=== PATIENT | male | born 1980 | race Hispanic/Latino ===

== ENCOUNTER 2023-04-21 15:56 | Emergency (ER) | payer SELFPAY ==
[~2023-04-21] VITALS: Ht 157.5 cm; Wt 90.0 kg
[2023-04-21] VITALS (8 sets, daily range): BP systolic 121–143; BP diastolic 79–95
[2023-04-21] MEDS ORDERED: TRANEXAMIC ACID 100 MG/ML 10ML TOP ONE (17:10)
[2023-04-21 17:21] LABS: BASO% 0.5 % (0-3); EOS% 1.7 % (0-8); HEMATOCRIT 33.4 % (39.0-50.0); HEMOGLOBIN 10.9 g/dl (14.0-18.0); IMMATURE GRANULOCYTES 0.2 % (0.0-5.0); LYMPH% 20.5 % (15-41); MEAN CELL VOLUME 84.3 fL CALC (80.0-100.0); MEAN CORPUSCULAR HGB 27.5 pG CALC (26.0-32.0); MEAN CORPUSCULAR HGB CONC 32.6 g/dL CAL (32.0-36.0); MONO% 7.5 % (2-13); NEUT# 4.06 thou/uL (1.82-7.42); NEUT% 69.6 % (42-76); RED BLOOD COUNT 3.96 mill/uL (4.70-6.10)
[2023-04-21 17:38] LABS: ALBUMIN 4.2 g/dL (3.2-5.0); ALKALINE PHOSPHATASE 94 u/l (38-126); ANION GAP 12 (6-22 (CALC)); BILIRUBIN, TOTAL 0.9 mg/dL (0.2-1.3); BUN 16 mg/dL (9-20); BUN/CREATININE RATIO 27 (12-20 (CALC)); CARBON DIOXIDE 22 mmol/l (22-30); CHLORIDE 107 mmol/l (95-108); CREATININE 0.6 mg/dL (0.7-1.3); GFR FOR AFR.AMER. > 60 ML/MIN (>=60 (CALC)); GFR OTHER RACES > 60 ML/MIN (>=60 (CALC)); POTASSIUM 3.8 mmol/l (3.5-5.1); SGOT/AST 91 u/l (17-59); SODIUM 137 mmol/l (137-146); TOTAL PROTEIN 8.2 g/dL (6.3-8.2)
[2023-04-21 17:40] LABS: ACT PARTIAL THROMBO TIME 25.6 SECONDS (20.0-32.5); INTERNATIONAL NORMALIZED RATIO 1.2 RATIO (0.7-1.3); PROTHROMBIN TIME 11.5 SECONDS (9.0-12.5)
[2023-04-22] MEDS ORDERED: LISINOPRIL10 MG PO (18:11)
== END 2023-04-21 19:36 | disposition home or self-care (01) | DRG 151 ==
LOC: ED 15:56
PROVIDERS: Emergency Medicine
PROC: 2Y41X5Z Packing of Nasal Region using Packing Material (ICD-10-PCS; principal; 2023-04-21)
DX: R04.0 Epistaxis (principal)

== ENCOUNTER 2023-04-22 16:55 | Emergency (ER) | payer SELFPAY ==
[~2023-04-22] VITALS: Ht 157.5 cm; Wt 90.7 kg
[2023-04-22 17:00] VITALS: BP 150/98
[2023-04-22] MEDS ORDERED: LISINOPRIL 10 MG/TAB PO ONE (17:15)
[2023-04-22 17:55] VITALS: BP 136/94
[2023-04-22 18:00] VITALS: BP 135/91
[2023-04-22] MEDS ORDERED: LISINOPRIL10 MG PO (18:11)
[2023-04-22 18:15] VITALS: BP 130/90
[2023-04-22 18:30] VITALS: BP 134/93
[2023-04-22 18:38] VITALS: BP 134/93
== END 2023-04-22 18:39 | disposition home or self-care (01) | DRG 951 ==
LOC: ED 16:55
DX: Z48.00 Encounter for change or removal of nonsurgical wound dressing (principal); I10 Essential (primary) hypertension

== ENCOUNTER 2024-05-24 07:32 | Emergency (ER) | payer SELFPAY ==
[~2024-05-24] VITALS: Ht 157.5 cm; Wt 72.7 kg
[~2024-05-24 07:32] MED LIST: LISINOPRIL10 MG PO
[2024-05-24 07:39] VITALS: BP 146/101
[2024-05-24 07:45] VITALS: BP 139/94
[2024-05-24 08:00] VITALS: BP 134/91
[2024-05-24 08:11] VITALS: BP 134/91
== END 2024-05-24 08:20 | disposition home or self-care (01) | DRG 151 ==
LOC: ED 07:32
DX: R04.0 Epistaxis (principal)